=== PATIENT | female | born 1955 | race Caucasian/White ===

== ENCOUNTER 2017-01-14 17:37 | Inpatient (IN) ==
--- NOTE | 2017-01-14 18:33 | Emergency Department Note ---
Disposition Clinical Impression: Difficulty breathing, Leg pain, left, Cancer Disposition: Admitted As Inpatient Condition: Fair Time of Disposition: 21:06 General Adult HPI - General Chief complaint: ED Abdominal Pain Stated complaint: ABD / LLE Pain Time Seen by Provider: 01/14/17 18:27 Source: patient Limitations: no limitations Nursing Notes Reviewed: Yes Vital Signs Reviewed: Yes - History of Present Illness HPI Narrative: Pt is a 61F with hx of breast CA with metastases to her liver and lungs presents with LLQ/left suprapubic abdominal pain that has been going on since yesterday associated with nausea. She is also presenting with LLE pain that starts in her buttocks and radiates down to her foot. Denies any numbness or tingling. The patient is also c/o JIMENA that is worse than normal for her. Pain Scale: 6 - Related Data Home Medications Medication Instructions Recorded Confirmed Venlafaxine XR (24 HR) [Effexor Xr] 1 cap PO HS 04/01/15 01/14/17 Aspirin [Lo-Dose Aspirin EC] 81 mg PO 01/14/17 Atorvastatin [Lipitor] 40 mg PO HS 01/14/17 01/14/17 Carvedilol [Coreg] 6.25 mg PO BID 01/14/17 01/14/17 DiphenhydraMINE [Benadryl] 50 mg PO Q6HR PRN 01/14/17 01/14/17 Docusate [Colace] 100 mg PO BID 01/14/17 01/14/17 Enoxaparin [Lovenox] 100 mg SQ Q12HR 01/14/17 01/14/17 Esomeprazole Magnesium [Nexium] 20 mg PO 01/14/17 Eszopiclone [Lunesta] 2 mg PO 01/14/17 Morphine Sulfate SR (12 HR) [MS 1 tab PO Q12HR 01/14/17 01/14/17 Contin] Ondansetron ODT [Zofran ODT] 4 mg SL Q6HR 01/14/17 01/14/17 OxyCODONE Immed Rel [Roxicodone 5 10 mg PO Q4HR PRN 01/14/17 01/14/17 MG] Potassium Chloride [K-Tab ER] 20 meq PO HS 01/14/17 01/14/17 Promethazine [Phenergan] 25 mg PO Q6HR 01/14/17 01/14/17 Sennosides [Senna] 8.6 mg PO BID 01/14/17 01/14/17 Ubidecarenone [Co Q-10] 10 mg PO 01/14/17 Allergies Allergy/AdvReac Type Severity Reaction Status Date / Time adhesive tape Allergy Anaphylaxis Verified 04/01/15 15:58 diazepam [From Valium] Allergy Anaphylaxis Verified 04/01/15 15:58 All systems ED: reviewed and negative except as stated. Constitutional: Denies: fever, chills Cardiovascular: Denies: chest pain, palpitations, dyspnea on exertion Respiratory: Reports: dyspnea. Denies: cough, wheezes Gastrointestinal: Reports: abdominal pain, nausea. Denies: vomiting, diarrhea Genitourinary: Reports: frequency (decreased frequency. ). Denies: urgency, dysuria Musculoskeletal: Denies: back pain Integumentary: Denies: rash Past Medical History - Past Medical History Attestation: Yes The following information was validated with the patient. Source: patient Medical history: Reports: cancer Psychiatric history: Reports: anxiety, depression - Social History Smoking Status: Never smoker Smokeless Tobacco Status: No Alcohol use: Reports: none Drug use: Reports: none Physical Exam - General Limitations: no limitations General appearance: alert, in no apparent distress - Head Head exam: atraumatic, normocephalic, normal inspection - Eye Eye exam: Present: normal appearance, PERRL, EOMI - ENT ENT exam: normal exam, normal oropharynx, mucous membranes dry - Neck Neck exam: Present: normal inspection, full ROM, trachea midline. Absent: tenderness - Chest Chest inspection: Present: normal inspection, symmetric chest wall rise. Absent : tenderness - Respiratory Respiratory exam: Present: normal lung sounds bilaterally. Absent: respiratory distress, wheezes - Cardiovascular Cardiovascular exam: Present: regular rate, normal rhythm, normal heart sounds - Abdominal Exam Abdominal exam: Present: soft, tenderness, normal bowel sounds. Absent: guarding, rebound, rigidity Abdominal tenderness: Present: LLQ, suprapubic - Extremities Exam Extremities exam: Present: normal inspection, full ROM, normal capillary refill. Absent: tenderness - Expanded Lower Extremity Exam Lower leg exam: Present: normal inspection, full ROM. Absent: tenderness, swelling, palpable cord Neurovascular/Tendon exam: Present: normal capillary refill. Absent: pulse deficit, motor deficit, sensory deficit - Back Exam Back exam: Present: normal inspection, full ROM. Absent: tenderness - Neurological Exam Neurological exam: Present: alert, oriented X3 - Psychiatric Psychiatric exam: Present: normal affect, normal mood - Skin Skin exam: Present: warm, dry, intact Course Course Narrative: Patient is a 5 year old female presents with complaints of abdominal pain that started yesterday, left lower extremity pain it has been going on for the past week that sounds radicular in nature, she is also had increasing shortness of breath more so than her baseline shortness of breath that she always has. She has a medical history of breast cancer previously diagnosed and treated now with metastases to the liver and her lungs. Due to the patient's presentation O order abdominal workup on the patient imaging. I will also order a d-dimer since she is a cancer patient and she is experiencing increased shortness of breath. I will treat the patient's pain and nausea while she is waiting results - Reevaluation(s) Reevaluation #1: Patient states her nausea is improved. She also discusses with me that she is not able to P. I have asked for a straight catheter from the nurse. Discussed with the patient that her findings on her CT results have shown any new findings that are unrelated to her cancer. Discussed that her CTA of her chest and her chest x-ray showed a right small pleural effusion that her left hemidiaphragm was elevated due to the size of her liver. The patient was given fentanyl for pain. She states this is not helping her pain. She requested some blankets I got her blankets to proper knee upon 2. The patient will be admitted for further evaluation and workup for her pain in her difficulty with breathing. Vital Signs Temperature 97.4 F L 01/14/17 17:44 Pulse Rate 91 01/14/17 17:44 Respiratory Rate 18 01/14/17 17:44 Blood Pressure 135/80 01/14/17 17:44 O2 Sat by Pulse Oximetry 94 01/14/17 17:44 Temperature 98.3 F 01/14/17 23:33 Pulse Rate 77 01/14/17 23:33 Respiratory Rate 16 01/14/17 23:33 Blood Pressure 141/66 01/14/17 23:33 O2 Sat by Pulse Oximetry 96 01/14/17 23:33 Oxygen Delivery Oxygen Delivery Nasal Cannula Medical Decision Making - Medical Records Medical records reviewed: Yes I reviewed the patient's medical records. - Lab Data Lab results reviewed: Yes I reviewed the patient's lab results. Result diagrams: 01/14/17 19:15 01/14/17 19:15 Lab Results 01/14/17 01/14/17 01/14/17 Range/Units 19:15 19:15 19:15 WBC 9.0 (4.3-11.1) K/mcL RBC 3.24 L (3.82-4.97) M/mcL Hgb 8.8 L (11.5-15.4) g/dL Hct 27.8 L (35.3-44.9) % MCV 85.8 (83.0-100.0) fL MCH 27.2 L (28.0-33.3) pg MCHC 31.7 (31.6-35.5) g/dL RDW 18.0 H (11.5-14.5) % Plt Count 284 (140-400) K/mcL MPV 9.5 (9.4-12.4) fL Immature Gran % 3.9 (0-4) % Seg Neutrophils % 78.0 % Lymphocytes % 9.7 % Monocytes % 7.7 % Eosinophils % 0.4 % Basophils % 0.3 % Neutrophils # 7.0 (1.6-8.9) K/mcL Lymphocytes # 0.9 (0.6-4.6) K/mcL Monocytes # 0.7 (0.0-1.3) K/mcL Eosinophils # 0.0 (0.0-0.6) K/mcL Basophils # 0.0 (0.0-0.2) K/mcL Nucleated RBCs/100 WBC 0.2 H (0) /100 WBC PT Cancelled INR Cancelled APTT Cancelled D-Dimer 4893 H (0-500) ng/mLFEU Sodium (136-145) mEq/L Potassium (3.5-4.5) mEq/L Chloride (98-109) mEq/L Carbon Dioxide (19-29) mEq/L BUN (7-20) mg/dL Creatinine (0.57-1.11) mg/dL Est GFR ( Amer) (> 60) Est GFR (Non-Af Amer) (> 60) BUN/Creatinine Ratio (6-26) Glucose (70-99) mg/dL Calculated Osmolality (280-300) Calcium (8.6-10.8) mg/dL Total Bilirubin 1.0 (0.2-1.2) mg/dL Direct Bilirubin 0.6 H (0.0-0.5) mg/dL Indirect Bilirubin 0.4 (0.0-1.2) mg/dL AST 120 H (5-34) Units/L ALT 62 H (0-55) Units/L Alkaline Phosphatase 385 H (38-126) Units/L Troponin I (0-0.03) ng/mL Serum Total Protein 6.0 (6.0-8.3) g/dL Albumin 2.7 L (3.5-5.0) g/dL Globulin 3.3 (2.4-3.5) g/dL Albumin/Globulin Ratio 0.8 L (1.1-2.2) Amylase 17 L (25-125) Units/L Lipase < 10 (8-78) Units/L Urine Color (Yellow) Urine Clarity (Clear) Urine pH (5.0-8.0) pH Units Ur Specific [place] (1.010-1.025) Urine Protein (Neg-Trace) mg/dL Urine Glucose (UA) (Normal) mg/dL Urine Ketones (Negative) mg/dL Urine Blood (Negative) Urine Nitrite (Negative) Urine Bilirubin (Negative) Urine Urobilinogen (Normal) mg/dL Ur Leukocyte Esterase (Negative) Ur Culture Indicated? (NO) 01/14/17 01/14/17 01/14/17 Range/Units 19:15 19:15 20:57 WBC (4.3-11.1) K/mcL RBC (3.82-4.97) M/mcL Hgb (11.5-15.4) g/dL Hct (35.3-44.9) % MCV (83.0-100.0) fL MCH (28.0-33.3) pg MCHC (31.6-35.5) g/dL RDW (11.5-14.5) % Plt Count (140-400) K/mcL MPV (9.4-12.4) fL Immature Gran % (0-4) % Seg Neutrophils % % Lymphocytes % % Monocytes % % Eosinophils % % Basophils % % Neutrophils # (1.6-8.9) K/mcL Lymphocytes # (0.6-4.6) K/mcL Monocytes # (0.0-1.3) K/mcL Eosinophils # (0.0-0.6) K/mcL Basophils # (0.0-0.2) K/mcL Nucleated RBCs/100 WBC (0) /100 WBC PT INR APTT D-Dimer (0-500) ng/mLFEU Sodium 133 L (136-145) mEq/L Potassium 3.5 (3.5-4.5) mEq/L Chloride 98 (98-109) mEq/L Carbon Dioxide 23 (19-29) mEq/L BUN 14 (7-20) mg/dL Creatinine 0.79 (0.57-1.11) mg/dL Est GFR ( Amer) > 60 (> 60) Est GFR (Non-Af Amer) > 60 (> 60) BUN/Creatinine Ratio 18 (6-26) Glucose 97 (70-99) mg/dL Calculated Osmolality 276 L (280-300) Calcium 9.0 (8.6-10.8) mg/dL Total Bilirubin 1.0 (0.2-1.2) mg/dL Direct Bilirubin (0.0-0.5) mg/dL Indirect Bilirubin (0.0-1.2) mg/dL AST 120 H (5-34) Units/L ALT 61 H (0-55) Units/L Alkaline Phosphatase 385 H (38-126) Units/L Troponin I 0.00 (0-0.03) ng/mL Serum Total Protein 6.0 (6.0-8.3) g/dL Albumin 2.7 L (3.5-5.0) g/dL Globulin 3.3 (2.4-3.5) g/dL Albumin/Globulin Ratio 0.8 L (1.1-2.2) Amylase (25-125) Units/L Lipase (8-78) Units/L Urine Color Dark Yellow (Yellow) Urine Clarity Hazy A (Clear) Urine pH 6.0 (5.0-8.0) pH Units Ur Specific [place] > 1.030 H (1.010-1.025) Urine Protein Trace (Neg-Trace) mg/dL Urine Glucose (UA) Normal (Normal) mg/dL Urine Ketones Negative (Negative) mg/dL Urine Blood Negative (Negative) Urine Nitrite Negative (Negative) Urine Bilirubin Small H (Negative) Urine Urobilinogen Normal (Normal) mg/dL Ur Leukocyte Esterase Negative (Negative) Ur Culture Indicated? NO (NO) 01/14/17 Range/Units 21:18 WBC (4.3-11.1) K/mcL RBC (3.82-4.97) M/mcL Hgb (11.5-15.4) g/dL Hct (35.3-44.9) % MCV (83.0-100.0) fL MCH (28.0-33.3) pg MCHC (31.6-35.5) g/dL RDW (11.5-14.5) % Plt Count (140-400) K/mcL MPV (9.4-12.4) fL Immature Gran % (0-4) % Seg Neutrophils % % Lymphocytes % % Monocytes % % Eosinophils % % Basophils % % Neutrophils # (1.6-8.9) K/mcL Lymphocytes # (0.6-4.6) K/mcL Monocytes # (0.0-1.3) K/mcL Eosinophils # (0.0-0.6) K/mcL Basophils # (0.0-0.2) K/mcL Nucleated RBCs/100 WBC (0) /100 WBC PT 14.7 H INR 1.4 APTT 33.7 D-Dimer (0-500) ng/mLFEU Sodium (136-145) mEq/L Potassium (3.5-4.5) mEq/L Chloride (98-109) mEq/L Carbon Dioxide (19-29) mEq/L BUN (7-20) mg/dL Creatinine (0.57-1.11) mg/dL Est GFR ( Amer) (> 60) Est GFR (Non-Af Amer) (> 60) BUN/Creatinine Ratio (6-26) Glucose (70-99) mg/dL Calculated Osmolality (280-300) Calcium (8.6-10.8) mg/dL Total Bilirubin (0.2-1.2) mg/dL Direct Bilirubin (0.0-0.5) mg/dL Indirect Bilirubin (0.0-1.2) mg/dL AST (5-34) Units/L ALT (0-55) Units/L Alkaline Phosphatase (38-126) Units/L Troponin I (0-0.03) ng/mL Serum Total Protein (6.0-8.3) g/dL Albumin (3.5-5.0) g/dL Globulin (2.4-3.5) g/dL Albumin/Globulin Ratio (1.1-2.2) Amylase (25-125) Units/L Lipase (8-78) Units/L Urine Color (Yellow) Urine Clarity (Clear) Urine pH (5.0-8.0) pH Units Ur Specific [place] (1.010-1.025) Urine Protein (Neg-Trace) mg/dL Urine Glucose (UA) (Normal) mg/dL Urine Ketones (Negative) mg/dL Urine Blood (Negative) Urine Nitrite (Negative) Urine Bilirubin (Negative) Urine Urobilinogen (Normal) mg/dL Ur Leukocyte Esterase (Negative) Ur Culture Indicated? (NO) - Radiology Data Radiology results reviewed: Yes I reviewed the patient's radiology results. Abdomen/Pelvis CT 01/14/17 19:06 IMPRESSION: No acute inflammatory abnormality is identified in the abdomen or pelvis. Hepatomegaly with extensive metastatic infiltration, including a large confluent mass in the right lobe. Multiple bilateral pulmonary nodules, likely metastatic. Small right pleural effusion. Mild right lower lobe atelectasis. Pneumonia is less likely. Small amount of fluid in the pelvis. D/ / Shree Vallejo MD / Shree Vallejo MD Interpreting Provider: Shree Vallejo MD Chest X-Ray 01/14/17 19:36 IMPRESSION: 1. Likely left basilar atelectasis and small right pleural effusion. No definite focal consolidation identified. 2. Elevation of the right hemidiaphragm. D/ / Sven Fisher MD / Sven Fisher MD Interpreting Provider: Sven Fisher MD Chest CTA 01/14/17 19:42 IMPRESSION: 1. No pulmonary embolus. 2. Innumerable metastatic foci seen throughout the lungs in liver. 3. Small right pleural effusion. 4. Sclerotic appearance of the sternum additionally concerning for metastatic disease. D/ / Keon Butts / Keon Butts Interpreting Provider: Keon Butts - EKG Data EKG #1 EKG attestation: Yes I reviewed and interpreted this EKG. EKG results narrative: EKG was interpreted by me. Shows sinus rhythm rate in the 80's with frequent PVCs. Nonspecific t-wave abnormality. No old for comparison. Attestation Statement - Attestation Attestation: I examined this patient and my medical decision-making was reviewed with the Resident Physician. I agree with the documented findings, disposition and treatment plan as described except to the extent set forth below. Patient presents to the emergency department when the left leg and left lower abdominal pain. Shortness of breath. Patient has stage IV breast cancer with metastasis to the liver. She has been coughing. No fever. On examination she has no swelling of the leg. She does have pain when leg is elevated off the bed. The pain is all posterior. Lung sounds are diminished but clear. Plan. The patient has pleural effusion. Negative for PE. Abdominal CT scan just shows her liver metastasis. She is in a significant amount of pain. We will admit.
[2017-01-14] MEDS ORDERED: 0.9 % Sodium Chloride 1,000 ML IVC ONE (18:55)
[2017-01-14] MEDS ORDERED: *HR* FentaNYL (PF) 100 MCG/2 ML VIAL IVP ONE (19:00)
[2017-01-14] MEDS ORDERED: Ondansetron 4 MG/2 ML VIAL IVP ONE ×2 (19:13→21:27)
[2017-01-14 19:26] LABS: Basophils % 0.3 %; Eosinophils % 0.4 %; Hematocrit 27.8 % (35.3-44.9); Hemoglobin 8.8 g/dL (11.5-15.4); Immature Granulocytes % 3.9 % (0-4); Lymphocytes # 0.9 K/mcL (0.6-4.6); Lymphocytes % 9.7 %; Mean Corpuscular HGB Conc 31.7 g/dL (31.6-35.5); Mean Corpuscular Hemoglobin 27.2 pg (28.0-33.3); Mean Corpuscular Volume 85.8 fL (83.0-100.0); Mean Platelet Volume 9.5 fL (9.4-12.4); Monocytes # 0.7 K/mcL (0.0-1.3); Monocytes % 7.7 %; Nucleated Red Blood Cells 0.2 /100 WBC (0); Platelet Count 284 K/mcL (140-400); Red Blood Count 3.24 M/mcL (3.82-4.97)
[2017-01-14 19:39] LABS: Alanine Aminotransferase 62 Units/L (0-55); Albumin 2.7 g/dL (3.5-5.0); Albumin/Globulin Ratio 0.8 (1.1-2.2); Alkaline Phosphatase 385 Units/L (38-126); Amylase 17 Units/L (25-125); Aspartate Amino Transferase 120 Units/L (5-34); Bilirubin,Direct 0.6 mg/dL (0.0-0.5); Bilirubin,Indirect 0.4 mg/dL (0.0-1.2); Globulin 3.3 g/dL (2.4-3.5)
[2017-01-14 19:40] LABS: Alanine Aminotransferase 61 Units/L (0-55); Albumin 2.7 g/dL (3.5-5.0); Albumin/Globulin Ratio 0.8 (1.1-2.2); Alkaline Phosphatase 385 Units/L (38-126); Aspartate Amino Transferase 120 Units/L (5-34); BUN/Creatinine Ratio 18 (6-26); Blood Urea Nitrogen 14 mg/dL (7-20); Carbon Dioxide 23 mEq/L (19-29); Chloride 98 mEq/L (98-109); Globulin 3.3 g/dL (2.4-3.5); Glucose 97 mg/dL (70-99); Lipase < 10 Units/L (8-78); Osmolality,Calculated 276 (280-300); Potassium 3.5 mEq/L (3.5-4.5); Sodium 133 mEq/L (136-145); eGFR For African Americans > 60 (> 60); eGFR For Non-African Americans > 60 (> 60)
[2017-01-14 21:18] LABS: Bilirubin,Urine Small (Negative); Blood,Urine Negative (Negative); Color,Urine Dark Yellow (Yellow); Glucose,Urine (UA) Normal (Normal); Ketones,Urine Negative (Negative); Leukocyte Esterase,Urine Negative (Negative); Nitrite,Urine Negative (Negative); Protein,Urine Trace mg/dL (Neg-Trace); Specific Gravity,Urine > 1.030 (1.010-1.025); Urobilinogen,Urine Normal (Normal)
[2017-01-14 21:22] LABS: Clarity,Urine Hazy (Clear)
[2017-01-14] MEDS ORDERED: *HR* HYDROmorphone (PF) 1 MG/ML SYRINGE IVP ONE ×2 (21:26→22:34)
[2017-01-14 21:41] LABS: INR 1.4; Prothrombin Time 14.7 Seconds (9.4-12.1)
[2017-01-14 21:43] LABS: Activated Partial Thrombo Time 33.7 Seconds (26.0-36.0)
[2017-01-14] MEDS ORDERED: Naloxone 0.4 MG/ML INJ IVP PRN (22:42)
[2017-01-14] MEDS ORDERED: Dexamethasone 4 MG/ML VIAL IVP ONE (22:44)
[2017-01-14] MEDS ORDERED: *HR* OxyCODONE Immed Rel 5 MG TABLET PO PRN (22:49)
--- NOTE | 2017-01-14 22:51 | Internal Med History&Physical ---
Date of Encounter: 01/15/17 Time of Encounter: 22:00 Assessment and Plan (1) Left-sided low back pain with sciatica Current visit: Yes Status: Acute - One week history of shooting pain radiating down the left leg. No numbness/ tingling, focal weakness or incontinence. - Given the metastatic breast cancer history, concern of possible metastatsis to lumbar spine. - Will obtain lumbar spine MRI for further evaluation. - Will give one dose of Decadron to reduce the possible inflammation. - Closely monitor. Qualifiers: Chronicity: acute Sciatica laterality: sciatica of left side Qualified Code(s): M54.42 - Lumbago with sciatica, left side (2) Metastatic breast cancer Current visit: Yes Status: Chronic - With known metastasis to liver (as seen on CT A/P) s/p TACE procedure. - Continue patient's home pain medication regimen and add Dilaudid prn breakthrough pain. (3) Drug-induced cardiomyopathy Current visit: Yes Status: Acute - Doxorubicin-induced cardiomyopathy. - Patient states her EF recently came back to 40%. - Continue Coreg. (4) GERD (gastroesophageal reflux disease) Current visit: Yes Status: Chronic - Continue PPI. Qualifiers: Esophagitis presence: esophagitis presence not specified Qualified Code(s) : K21.9 - Gastro-esophageal reflux disease without esophagitis (5) DVT prophylaxis Current visit: Yes Status: Acute - Continue Lovenox 100 mg q12H for now. - Will need discussion with patient's pharmacy to find out patient's current Lovenox dose. Internal Medicine - H&P: HPI Chief complaint: Left leg pain Admitted From: Emergency Dept Plans for Post Hospital Care: Home History of present illness: Ms. Horowitz is a 61 year old female with stage IV breast cancer with metastasis to liver and doxorubicin-induced cardiomyopathy. Patient presented with complaint of left leg pain and lower quadrant abdominal pain for one week. Patient described the left leg pain as sciatica-like shooting pain radiating from left lower back down the leg. It's aggravated when she bends her hip. Patient denies numbness/tingling, focal weakness or inconitinence. The abdominal pain is dull and mostly on the left side. Patient has occasional nausea and productive cough but denies vomiting, hematochezia, melena, fever, chills. Patient follows up with oncologist at [facility] and reports having transarterial chemoembolization (TACE) for liver metastases on 12/07/16. Patient reports having history of blood clot in the port and was taking Lovenox 100 mg q12H but is not sure what's her current dosage. Patient does not want resuscitation upon cardiac arrest. Past Med Surg Social Fam HX - Past Medical History Medical history: cancer Psychiatric history: anxiety, depression - Social History Smoking Status: Never smoker Smokeless Tobacco Status: No Alcohol use: none Drug use: none Internal Medicine - H&P: Meds Venlafaxine XR (24 HR) [Effexor Xr] 1 cap PO HS 04/01/15 [History] Aspirin [Lo-Dose Aspirin EC] 81 mg PO 01/14/17 [History] Atorvastatin [Lipitor] 40 mg PO HS 01/14/17 [History] Carvedilol [Coreg] 6.25 mg PO BID 01/14/17 [History] DiphenhydraMINE [Benadryl] 50 mg PO Q6HR PRN 01/14/17 [History] Docusate [Colace] 100 mg PO BID 01/14/17 [History] Enoxaparin [Lovenox] 100 mg SQ Q12HR 01/14/17 [History] Esomeprazole Magnesium [Nexium] 20 mg PO 01/14/17 [History] Eszopiclone [Lunesta] 2 mg PO 01/14/17 [History] Morphine Sulfate SR (12 HR) [MS Contin] 1 tab PO Q12HR 01/14/17 [History] Ondansetron ODT [Zofran ODT] 4 mg SL Q6HR 01/14/17 [History] OxyCODONE Immed Rel [Roxicodone 5 MG] 10 mg PO Q4HR PRN 01/14/17 [History] Potassium Chloride [K-Tab ER] 20 meq PO HS 01/14/17 [History] Promethazine [Phenergan] 25 mg PO Q6HR 01/14/17 [History] Sennosides [Senna] 8.6 mg PO BID 01/14/17 [History] Ubidecarenone [Co Q-10] 10 mg PO 01/14/17 [History] Allergies adhesive tape Allergy (Verified 04/01/15 15:58) Anaphylaxis diazepam [From Valium] Allergy (Verified 04/01/15 15:58) Anaphylaxis All Systems PM: A 10-system review of systems was performed and is negative for pertinent findings except as documented above in the HPI. - Constitutional Constitutional: anorexia, no chills, no fever(s) - EENT Eyes: no change in vision Ears: no decreased hearing Nose, mouth and throat: no dysphagia, no odynophagia - Cardiovascular Cardiovascular ROS IM: no chest pain, no lightheadedness, no syncope - Respiratory Respiratory: cough, no dyspnea, no hemoptysis - Gastrointestinal Gastrointestinal: as per HPI, abdominal pain, nausea, no hematemesis, no melena , no vomiting - Genitourinary Genitourinary: no difficulty urinating, no dysuria, no hematuria, no urinary incontinence - Integumentary Integumentary IM: no pruritus, no rash - Neurological Neurological ROS: no focal weakness, no numbness, no tingling - Constitutional Vitals: Temp Pulse Resp BP Pulse Ox 97.8 F 88 20 153/82 98 01/14/17 21:53 01/14/17 21:28 01/14/17 21:53 01/14/17 21:53 01/14/17 21:28 General appearance: Present: cooperative, A&O X 3, no acute distress, answers questions appropriately - Head Head exam: Present: atraumatic, normocephalic - Eye Eye exam: Present: EOMI, PERRL, conjuntiva pink, sclera anicteric - Neck Neck exam general surgery: Present: supple, trachea midline. Absent: lymphadenopathy - Respiratory Respiratory exam: Present: CTAB. Absent: accessory muscle use, rales, rhonchi, wheezes - Cardiovascular Cardiovascular exam: Present: RRR, +S1, +S2. Absent: diastolic murmur, gallop, rubs, systolic murmur - GI/Abdominal GI/Abdominal exam: Present: normal bowel sounds, soft, tenderness (bilateral lower quadrants.), no peritoneal signs. Absent: distended - Extremities Exam Extremities exam: Present: warm, radial pulses palpable and symetrical. Absent : calf tenderness, cyanotic, pedal edema Additional comments: Flexion of left hip trigger the shooting pain. - Neurological Exam Neurological exam: Present: CN II-XII intact, oriented X3, no focal deficits. Absent: pronater drift, facial droop, speech deficit - Skin Skin exam: Present: dry, intact Internal Med - H&P Results - Labs CBC & Chem 7: 01/14/17 19:15 01/14/17 19:15
--- NOTE | 2017-01-14 22:56 | Event Note ---
Date of Encounter: 01/14/17 Time of Encounter: 22:54 61-year-old female with unfortunate history of metastatic breast cancer to the liver status post TACE. Presents today with a main complain of pain mainly in her left lower extremity appears to be sciatic pain. No clinical signs of spinal cord injury. We get MRI of lumbar spine to see there is any pathology there. Will give the patient on those of the cattle. Continue her home pain medicines which includes morphine long-acting 15 Q 12 hours as well as oxycodone 10 mg Q4 PRN. Will give Dilaudid 1 mg IV Q2 hours for breakthrough pain. She is do not resuscitate
[2017-01-15] MEDS: Ondansetron 4 MG/2 ML VIAL IVP PRN ×2 (02:55→11:57)
[2017-01-15] MEDS: *HR* HYDROmorphone (PF) 1 MG/ML SYRINGE IVP PRN ×3 (02:55→15:17)
[2017-01-15 03:08] LABS: Basophils % 0.3 %; Eosinophils % 0.1 %; Hematocrit 28.2 % (35.3-44.9); Hemoglobin 8.9 g/dL (11.5-15.4); Immature Granulocytes % 4.1 % (0-4); Lymphocytes # 0.5 K/mcL (0.6-4.6); Mean Corpuscular HGB Conc 31.6 g/dL (31.6-35.5); Mean Corpuscular Hemoglobin 27.3 pg (28.0-33.3); Mean Corpuscular Volume 86.5 fL (83.0-100.0); Mean Platelet Volume 9.3 fL (9.4-12.4); Monocytes # 0.3 K/mcL (0.0-1.3); Monocytes % 3.2 %; Neutrophils # 7.8 K/mcL (1.6-8.9); Nucleated Red Blood Cells 0.2 /100 WBC (0); Platelet Count 264 K/mcL (140-400); Red Blood Count 3.26 M/mcL (3.82-4.97); Red Cell Distribution Width 18.1 % (11.5-14.5); Segmented Neutrophils % 87.3 %
[2017-01-15 03:19] LABS: Alanine Aminotransferase 55 Units/L (0-55); Albumin 2.7 g/dL (3.5-5.0); Albumin/Globulin Ratio 0.8 (1.1-2.2); Alkaline Phosphatase 412 Units/L (38-126); Aspartate Amino Transferase 114 Units/L (5-34); BUN/Creatinine Ratio 15 (6-26); Bilirubin,Total 1.1 mg/dL (0.2-1.2); Blood Urea Nitrogen 12 mg/dL (7-20); Calcium 9.1 mg/dL (8.6-10.8); Carbon Dioxide 24 mEq/L (19-29); Chloride 99 mEq/L (98-109); Globulin 3.4 g/dL (2.4-3.5); Glucose 109 mg/dL (70-99); Osmolality,Calculated 278 (280-300); Potassium 3.8 mEq/L (3.5-4.5); Sodium 134 mEq/L (136-145); Total Protein 6.1 g/dL (6.0-8.3); eGFR For African Americans > 60 (> 60); eGFR For Non-African Americans > 60 (> 60)
[2017-01-15] MEDS ORDERED: *HR* Morphine Sulfate SR (12 HR) 15 MG TABLET.ER PO SCH (06:00)
[2017-01-15] MEDS ORDERED: *HR* Enoxaparin 100 MG/ML SYRINGE SQ SCH (06:00)
[2017-01-15] MEDS ORDERED: *HR* Enoxaparin 40 MG/0.4 ML SYRINGE SQ SCH (07:00)
[2017-01-15] MEDS ORDERED: Sennosides 8.6 MG TABLET PO SCH (09:00)
[2017-01-15 11:18] VITALS: BP 145/82
--- NOTE | 2017-01-15 13:10 | Internal Med Progress Note ---
Date of Encounter: 01/18/17 Time of Encounter: 13:07 - Assessment and plan (1) Left-sided low back pain with sciatica Status: Acute Assessment and plan: presented with shooting pain radiating down the left leg for one week prior to admission. No numbness/tingling, focal weakness or incontinence. L-spine MRI with diffuse metastatic disease throughout the thoracic and lumbar spine and into the sacrum. Received one time dose IV decadron on admission. Cont pain management. Follows with [facility]. Plan to transfer to [facility] with new metastasis. Qualifiers: Chronicity: acute Sciatica laterality: sciatica of left side Qualified Code(s): M54.42 - Lumbago with sciatica, left side (2) Metastatic breast cancer Status: Chronic Assessment and plan: with known metastasis to liver (as seen on CT A/P) s/p TACE procedure. Now with metastasis to lumbar, thoracic spine. Cont home pain medication regimen, PRN IV Dilaudid for breakthrough pain. Oncology consulted (3) Anemia Status: Acute Assessment and plan: Hgb 8.9; baseline unknown. No active/overt bleeding. 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 Appears compensated. Continue Coreg. (5) DVT prophylaxis Status: Acute Assessment and plan: Lovenox - Time Spent With Patient Greater than 35 minutes - Subjective Interval history: patient is new to me, information obtained from chart review and patient report. Just returned from MRI, complaining of 7/10 left leg and ABD pain. She is also nauseated. Has chronic numbness, tingling to hands and feet. No bowel, bladder incont. No CP, no SOB - Constitutional Vitals: Temp Pulse Resp BP Pulse Ox 98 F 94 16 145/82 94 01/15/17 11:17 01/15/17 11:17 01/15/17 11:17 01/15/17 11:01/15/17 11:17 General appearance: Present: cooperative, mild distress, A&O X 3, answers questions appropriately - Head Head exam: Present: atraumatic, normocephalic - Eye Eye exam: Present: PERRL, conjuntiva pink, sclera anicteric Pupils: Present: PERRL - Neck Neck exam general surgery: Present: supple, trachea midline. Absent: lymphadenopathy - Respiratory Respiratory exam: Present: CTAB. Absent: accessory muscle use, rales, rhonchi, wheezes - Cardiovascular Cardiovascular exam: Present: RRR, +S1, +S2. Absent: diastolic murmur, gallop, rubs, systolic murmur - GI/Abdominal GI/Abdominal exam: Present: normal bowel sounds, soft, no peritoneal signs. Absent: distended, tenderness - Extremities Exam Extremities exam: Present: warm, radial pulses palpable and symetrical. Absent : calf tenderness, cyanotic, pedal edema - Neurological Exam Neurological exam: Present: CN II-XII intact, oriented X3, no focal deficits. Absent: pronater drift, facial droop, speech deficit - Skin Skin exam: Present: dry, intact, pallor Internal Medicine: Result - Labs CBC & Chem 7: 01/15/17 02:55 01/15/17 02:55 - ABG Interpretation ABG results: PT/INR, D-dimer PT 14.7 Seconds (9.4-12.1) H 01/14/17 21:18 D-Dimer 4893 ng/mLFEU (0-500) H 01/14/17 19:15 Consult Discharge Plan - Plan Referrals: Ravinder Altamirano MD [Primary Care Provider] -
[2017-01-15] MEDS ORDERED: Venlafaxine XR (24 HR) 150 MG CAP.ER.24H PO SCH (21:00)
--- NOTE | 2017-01-17 15:09 | Electrocardiograph Report ---
[place] [id number] Test Date: 2017-01-14 Pat Name: Deann Horowitz Department: 103 Room: 3A35 Gender: F Fishing Worker: : 1955 Requested By: Farhan Angelo Order Number: [id number] Reading MD: Amber Bey Measurements Intervals Belva Rate: 78 P: 53 CA: 158 QRS: -23 QRSD: 117 T: 29 QT: 408 QTc: 442 Interpretive Statements SINUS RHYTHM WITH VENTRICULAR PREMATURE COMPLEXES BORDERLINE LEFT AXIS DEVIATION INTRAVENTRICULAR CONDUCTION DELAY NONSPECIFIC T-WAVE ABNORMALITY ABNORMAL RHYTHM ECG Electronically Signed On 01-16-2017 11:57:20 EDT by Amber Bey
--- NOTE | 2017-01-18 10:55 | Discharge Summary ---
Date of Encounter: 01/18/17 Time of Encounter: 17:00 - Discharge Diagnosis (1) Left-sided low back pain with sciatica Priority: Primary Status: Acute Comments: presented with shooting pain radiating down the left leg for one week prior to admission. No numbness/tingling, focal weakness or incontinence. L-spine MRI with diffuse metastatic disease throughout the thoracic and lumbar spine and into the sacrum. Received one time dose IV decadron on admission. Cont pain management. Follows with [facility]. Plan to transfer to [facility] with new metastasis. Qualifiers: Chronicity: acute Sciatica laterality: sciatica of left side Qualified Code(s): M54.42 - Lumbago with sciatica, left side (2) Metastatic breast cancer Priority: Primary Status: Chronic Comments: with known metastasis to liver (as seen on CT A/P) s/p TACE procedure. Now with metastasis to lumbar, thoracic spine. Cont home pain medication regimen, PRN IV Dilaudid for breakthrough pain. Case discussed with [facility] transfer center and patient will be transferred to [facility] for Oncology evaluation. (3) Anemia Priority: Primary Status: Acute Comments: Hgb 8.9; baseline unknown. No active/overt bleeding. Monitor Hgb and transfuse for Hgb less than 8. Qualifiers: Other causes of anemia: chronic disease, neoplastic Qualified Code(s): D63.0 - Anemia in neoplastic disease (4) Drug-induced cardiomyopathy Priority: Secondary Status: Acute Comments: doxorubicin-induced cardiomyopathy. 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 Appears compensated. Continue Coreg. - Discharge Medications Home Medications: Venlafaxine XR (24 HR) [Effexor Xr] 1 cap PO HS 04/01/15 [History] Aspirin [Lo-Dose Aspirin EC] 81 mg PO 01/14/17 [History] Atorvastatin [Lipitor] 40 mg PO HS 01/14/17 [History] Carvedilol [Coreg] 6.25 mg PO BID 01/14/17 [History] DiphenhydraMINE [Benadryl] 50 mg PO Q6HR PRN 01/14/17 [History] Docusate [Colace] 100 mg PO BID 01/14/17 [History] Enoxaparin [Lovenox] 100 mg SQ Q12HR 01/14/17 [History] Esomeprazole Magnesium [Nexium] 20 mg PO 01/14/17 [History] Eszopiclone [Lunesta] 2 mg PO 01/14/17 [History] Morphine Sulfate SR (12 HR) [MS Contin] 1 tab PO Q12HR 01/14/17 [History] Ondansetron ODT [Zofran ODT] 4 mg SL Q6HR 01/14/17 [History] OxyCODONE Immed Rel [Roxicodone 5 MG] 10 mg PO Q4HR PRN 01/14/17 [History] Potassium Chloride [K-Tab ER] 20 meq PO HS 01/14/17 [History] Promethazine [Phenergan] 25 mg PO Q6HR 01/14/17 [History] Sennosides [Senna] 8.6 mg PO BID 01/14/17 [History] Ubidecarenone [Co Q-10] 10 mg PO 01/14/17 [History] Allergies/Adverse Reactions: Allergies adhesive tape Allergy (Verified 04/01/15 15:58) Anaphylaxis diazepam [From Valium] Allergy (Verified 04/01/15 15:58) Anaphylaxis Date of admission: 01/14/17 09:33 Primary care physician: Ravinder Altamirano MD - Patient Status Disposition: Transfer Other Overall status at discharge: patient is not back to baseline - Discharge Instructions Follow Up With: Ravinder Altamirano MD [Primary Care Provider] - Hospital course: Ms. Horowitz is a 61 year old female - Time Spent with Patient Total time spent providing and/or coordinating discharge services: - Constitutional Vitals: Temp Pulse Resp BP Pulse Ox 98 F 94 16 145/82 94 01/15/17 11:17 01/15/17 11:17 01/15/17 11:17 01/15/17 11:17 01/15/17 11:17 General appearance: Present: cooperative, mild distress, A&O X 3, answers questions appropriately - Head Head exam: Present: atraumatic, normocephalic - Eye Eye exam: Present: PERRL, conjuntiva pink, sclera anicteric Pupils: Present: PERRL - Neck Neck exam general surgery: Present: supple, trachea midline. Absent: lymphadenopathy - Respiratory Respiratory exam: Present: CTAB. Absent: accessory muscle use, rales, rhonchi, wheezes - Cardiovascular Cardiovascular exam: Present: RRR, +S1, +S2. Absent: diastolic murmur, gallop, rubs, systolic murmur - GI/Abdominal GI/Abdominal exam: Present: normal bowel sounds, soft, no peritoneal signs. Absent: distended, tenderness - Extremities Exam Extremities exam: Present: warm, radial pulses palpable and symetrical. Absent : calf tenderness, cyanotic, pedal edema - Neurological Exam Neurological exam: Present: CN II-XII intact, oriented X3, no focal deficits. Absent: pronater drift, facial droop, speech deficit - Skin Skin exam: Present: dry, intact, pallor
== END 2017-01-15 16:20 | disposition other institution (70) | DRG 543 ==
LOC: EMEROO 17:37 → 3ANU 17:37
PROVIDERS: ADMIT Internal Medicine; ATTEND Family Medicine